=== PATIENT | female | born 1975 | race Caucasian/White ===

== ENCOUNTER 2018-01-17 09:30 | Outpatient (RCR) | payer MEDICAID, SELFPAY ==
--- NOTE | 2017-12-27 12:17 | HP.PTEVAL_ITS ---
Patient's Visit Information SALENA LORD is a 42 year old F referred to Physical Therapy by FELICITAS SAL with a diagnosis of LOW BACK PAIN. Date of Evaluation: 12/27/17 Physical Therapist: Boni Tian PT, - Visit Plan Frequency: 2x /Week Duration: 4 Weeks Plan: graded gradual DLS,kojo ex's ,posture ex' modalities for pain releive - Subjective Subjective: This 42 y/o female presents to physical therapy with low back pain. Patient bent over assisting patient for self hygine caused severe pain 2014 . Pain located on lower right side. Tried chiropractor then recommended PT. Patient symptoms elevations from chair,lifting,bending,standing 10 mins. Symptoms better with sitting,walking. Patient christian to sleep okay. Coughing/ sneezing -. Bowel/bladder-.Patient concern with mobilty issues. Mal parathesai/tingling. VOCATION: unemployed. SOCAIL: - Pain Right Back Pain Intensity (Out of 10): 3 Pain Intensity Range: 10 - Objective POSTURE: mild foward posture. GAIT: ambulates with mild foward posture reciprocal pattern. NEURO: denies parathesia/tingling ,reflexes L3-4,L4-5,L5- S1. PALAPTION: tender R-LS. SYMMTRIES: alighn. MMT: quads/hams/ankle /great toe extensors 4/5,hip flexion 4-/5. FLEXABLITY: hams min tight. LUMBAR ROM: flexion min loss,extension mod loss pain,side glides min/mod loss pain - Special Tests L/S Slump test left side: Negative L/S Slump test right side: Negative L/S Left Straight Leg Raise: Negative L/S Right Straight Leg Raise: Negative Lumbar Standing: Flexion - Mechanical Response: No effect Lumbar Standing: Flexion - Symptoms During Testing: Increases Lumbar Standing: Flexion - Symptoms After Testing: No worse Lumbar Standing: Extension - Mechanical Response: No effect Lumbar Standing: Extension - Symptoms During Testing: Increases Lumbar Standing: Extension - Symptoms After Testing: No worse Lumbar Standing: Right Side Glides - Mechanical Response: No effect Lumbar Standing: Right Side [place] - Symptoms During Testing: Increases Lumbar Standing: Right Side [place] - Symptoms After Testing: No worse Lumbar Standing: Left Side [place] - Mechanical Response: No effect Lumbar Standing: Left Side [place] - Symptoms During Testing: Increases Lumbar Standing: Left Side [place] - Symptoms After Testing: No worse Lumbar Lying: Flexion - Mechanical Response: No effect Lumbar Lying: Flexion - Symptoms During Testing: Increases Lumbar Lying: Flexion - Symptoms After Testing: Worse Lumbar Lying: Extension - Mechanical Response: Increases motion Lumbar Lying: Extension - Symptoms During Testing: Decreases Lumbar Lying: Extension - Symptoms After Testing: Better - Goals Goal 1:: Patient to be Independant with HEP Goal Time Frame: 4-6 Weeks Goal 2:: Patient to be Independant woth posture/body mechanics Goal Time Frame: 4-6 Weeks Goal 3:: Patient to decrease lumbar pain by 40% or greater to improve function with ADL'S and walking and standing. Goal Time Frame: 4-6 Weeks Goal 4:: Patient to improve lumbar ROM for function of recovery Goal Time Frame: 4-6 Weeks Goal 5:: Patient to be d/c to prophalaxis Goal Time Frame: 4-6 Weeks - Rehabilitation Potential Physical Therapy Diagnosis: Patient injuried lumbar pain worse with flexion responds bettwer with posture correction kojo ex's along with decrease core strength of TA thus benifit from skilled PT Rehabilitation Potential: Good - Anticipated Interventions Patient/Client Instruction: Educate patient on: Condition, Plan of Care For the Purpose of:: To decrease pain, To increase ROM, To improve muscle performance and motor function, To increase tolerance to activity/condition/ position, To decrease level of supervision to perform tasks, To improve health of tissue, To decrease soft tissue restriction, To increase flexibility/ROM, To reduce risk of recurrence, To improve ability to perform tasks related to life management Therapeutic Exercise to Include: Strength training, Body mechanics, Postural training, Flexibilty training, Dynamic Lumbar Stabilization, Kojo Exercises For the Purpose of:: To decrease pain, To increase ROM, To improve muscle performance and motor function, To increase tolerance to activity/condition/ position, To improve ability of physical actions for home/community/work/leisure , To improve health of tissue, To decrease soft tissue restriction, To improve ability to perform tasks related to life management TENS: Yes IF ES: Yes Cryotherapy (ice pack, ice massage): Yes Thermo therapy (hot pack): Yes Ultrasound (thermal/non thermal): Yes For the Purpose of:: To decrease pain, To increase ROM, To improve muscle performance and motor function, To increase tolerance to activity/condition/ position, To improve ability of physical actions for home/community/work/leisure , To improve health of tissue, To decrease soft tissue restriction, To reduce risk of recurrence, To improve ability to perform tasks related to life management Thank you for the opportunity to evaluate your patient. For Medicare and Medicare HMO plans, please review the plan of care and approve it. It will need to be FAXED BACK to us at [phone] for Medicare purposes. Please let me know if there are questions or concerns regarding this plan of care. Physician Signature: Date:
--- NOTE | 2018-03-29 15:28 | HP.PTDCNRP_ITS ---
HP - Discharge Summary (1) - Patient Information SALENA LORD was seen in my office for initial evaluation on 12/27/17. The following Plan of Care was established for this patient: Initial Frequency: 2x /Week Initial Duration: 4 Weeks - Anticipated Interventions Patient/Client Instruction: Educate patient on: Condition, Plan of Care For the Purpose of:: To decrease pain, To increase ROM, To improve muscle perf ormance and motor function, To increase tolerance to activity/condition/position, To decrease level of supervision to perform tasks, To improve health of tissue, To decrease soft tissue restriction, To increase flexibility/ROM, To reduce risk of recurrence, To improve ability to perform tasks related to life management Therapeutic Exercise to Include: Strength training, Body mechanics, Postural training, Flexibilty training, Dynamic Lumbar Stabilization, Kojo Exercises For the Purpose of:: To decrease pain, To increase ROM, To improve muscle performance and motor function, To increase tolerance to activity/condition/position, To improve ability of physical actions for home/community/work/leisure, To improve health of tissue, To decrease soft tissue restriction, To improve ability to perform tasks related to life management TENS: Yes IF ES: Yes Cryotherapy (ice pack, ice massage): Yes Thermo therapy (hot pack): Yes Ultrasound (thermal/non thermal): Yes For the Purpose of:: To decrease pain, To increase ROM, To improve muscle performance and motor function, To increase tolerance to activity/condition/position, To improve ability of physical actions for home/community/work/leisure, To improve health of tissue, To decrease soft tissue restriction, To reduce risk of recurrence, To improve ability to perform tasks related to life management This patient was last seen in our office 01/16/18. Pertinent comments regarding their Physical therapy will appear below: This patient seen for PT for back pain . Patient PT consisted of DLS abd/back,postural ex's, modalities ,kojo ex's . Patient Cancelled an NS last visits . Thus needs order to continue. At this point I will be discontinuing this patient from physical therapy. I would be happy to see this patient again in the future if found appropriate by the physician. Thank you! Boni Tian, PT,
== END 2018-01-17 19:00 | disposition home or self-care (01) ==
LOC: PT 09:30
PROVIDERS: Family Provider Internal Medicine; PCP Internal Medicine
DX: M54.5 Low back pain (principal)
CPT/HCPCS: 97014; 97035; 97110; 97162; G0283

== ENCOUNTER 2018-01-22 17:12 | Emergency (ER) | payer MEDICAID, SELFPAY ==
[2018-01-22 17:14] VITALS: BP 133/71; PULSE 92; RESP 14; TEMP 36.9; O2SAT 100; BMI 50.5
--- NOTE | 2018-01-22 17:29 | ED.VISSUMM ---
- ER Visit Summary Date of Service: 01/22/18 Chief Complaint: Left lower paravertebral back pain History of Present Illness: The patient is a 42 F past medical history of a prior back injury. No prior back surgery. Today she was combing her hair she was bent over when she went to stand up she felt pain in her left lower paravertebral back. Denies any bowel or bladder incontinence. No fever. No trauma. No numbness or weakness in her legs. No abdominal pain. She did take 1.5 hydrocodone's at home which did help to relieve the symptoms. Physical Examination: Middle-aged obese female vital signs are all. She does not look septic or toxic. She is in no acute distress. HEENT exam unremarkable neck nontender. Lungs clear to auscultation bilaterally. Heart regular rhythm no murmur. Abdomen soft nondistended normal bowel sounds no peritoneal signs. She is moving all 4 extremities. No neurovascular intact. There is no cauda equina or saddle anesthesia and lower extremities. She has normal medial thigh sensation. Dorsi and plantar flexion is intact. 5 out of 5 motor strength. Negative straight leg raise bilaterally. Back as left lower paralumbar soft tissue tenderness consistent with myofascial strain and spasm. The cervical, thoracic and lumbar spine are all nontender. Neurologic exam normal. No motor or sensory deficits. Normal motor strength and sensation to both upper and lower extremities. Test Results: None Emergency Department Course and Treatment: IM Toradol here. She already took hydrocodone at home. Treatment Plan: Flexeril for muscle relaxant due to her insurance. Naprosyn for pain and inflammation. Hot showers. Warm bath. Massage. Disposition: Discharge Impression: Low back pain secondary to paravertebral muscle strain and spasm This note was generated with [employer] dictation software. It may contain incorrect words, spelling, and punctuation that were not noted in review of the chart prior to signing ED Disposition - Plan for ED Patient: Chief Complaint: Back Referrals: Audrey Lin MD [Primary Care Provider] -
[2018-01-22] MEDS: Ketorolac 60 MG/2 ML Vial IM (17:32)
--- NOTE | 2018-01-22 17:32 | ED.DEP ---
ED Disposition - Plan for ED Patient: Disposition: Home or Assisted Living Chief Complaint: Back Instructions: ED Spasm Back No Trauma Prescriptions: Cyclobenzaprine [Flexeril] 10 mg PO TID #20 tab Referrals: Audrey Lin MD [Primary Care Provider] - 1 Week if not improving Additional Instructions: Hot shower, warm bath and massage. Motrin for pain and inflammation. Flexeril as a muscle relaxant. No lifting more than 10 pounds until pain has been gone for several days.
[2018-01-22 18:03] VITALS: BP 116/59; PULSE 101; RESP 15; O2SAT 98
== END 2018-01-22 18:03 | disposition home or self-care (01) ==
PROVIDERS: Emergency Provider Emergency Medicine; Family Provider Internal Medicine; PCP Internal Medicine
DX: S39.012A Strain of muscle, fascia and tendon of lower back, initial encounter (principal); M54.5 Low back pain; M62.830 Muscle spasm of back; X50.1XXA Overexertion from prolonged static or awkward postures, initial encounter; Y93.9 Activity, unspecified; Y92.9 Unspecified place or not applicable; E66.9 Obesity, unspecified
CPT/HCPCS: 96372; 99283

== ENCOUNTER 2018-01-24 17:53 | Emergency (ER) | payer MEDICAID, SELFPAY ==
[2018-01-24 17:53] VITALS: BP 131/77; PULSE 97; RESP 18; TEMP 37.1; O2SAT 97; BMI 42.7
--- NOTE | 2018-01-24 18:35 | RAD_ITS ---
STUDY: X-RAY - ACUTE ABDOMINAL SERIES REASON FOR EXAM: Female, 42 years old. Colicky supraumbilical pain. TECHNIQUE: Single view of the chest. Supine, erect view(s) of the abdomen were obtained. COMPARISON: None. FINDINGS: CHEST: Heart size is normal. Hilar and mediastinal shadows are unremarkable. There is no pleural effusion or acute pulmonary inflammatory change. Soft tissues and bony structures are unremarkable. There is no free air beneath the diaphragm. ABDOMEN: There is a nonobstructive bowel gas pattern. Moderate stool burden. Calcifications in the lower left pelvis may represent phleboliths or distal ureteral stones. Soft tissues and bony structures are otherwise unremarkable. RAD/Acute Abdomen Inc Chest IMPRESSION: Nonobstructive abdomen. Electronically Signed: Maddi Pino MD at 19:23 EDT Tel , Service support ,
[2018-01-24] MEDS: Dicyclomine 10 MG Capsule 20 MG PO (18:51)
--- NOTE | 2018-01-24 20:27 | ED.DCSUM_ITS ---
- ER Visit Summary Date of Service: 01/24/18 Chief Complaint: Patient states the pain is sharp. History of Present Illness: The patient is a 42 F who presents with midline colicky supraumbilical abdominal pain started yesterday. There is no associated nausea, vomiting diarrhea. There is no associated dysuria, frequency, urgency hematuria. She denies radiation of the pain. She denies food intolerance. She denies history of cholelithiasis, she denies any abdominal surgery. She denies history of renal ureterolithiasis. She denies chest pain, palpitations, dyspnea on exertion, orthopnea or PND. She denies shortness of breath, coughing or pleuritic chest pain. She denies fever, chills or night sweats. She denies weight gain or weight loss. She reports presently having pain. Physical Examination: Vital signs noted and blood pressure slightly about 131/77. HEENT exam is unremarkable. Heart is regular without murmur, gallop or rub. S1 and S2 are normal. Lungs are clear to auscultation with good movement of air bilaterally. Abdomen is soft with tenderness 5 cm above the umbilicus in the midline.. There is no guarding or peritoneal findings. There is no palpable pulsatile mass. There is no abdominal bruit. Rodriguez sign is negative. Negative Rovsing sign. There is no evidence of inguinal or umbilical hernia. There is no CVA tenderness. There is no umbilical hernia. There are no dermatologic lesions noted. The remainder of the exam is unremarkable please read written note for complete detail Test Results: Since there was slight tympany to percussion and pain is colicky and x-ray of the abdomen was obtained which reveals no ossific gas pattern with increased bowel gas and increased fecal stasis ascending colon and part of the transverse colon. Emergency Department Course and Treatment: Abdominal x-ray was obtained to evaluate for ileus versus partial small bowel obstruction etc. Treatment Plan: Patient was treated with Bentyl. She appears in no discomfort. She states the pain has not resolved. Disposition: Discharged to home with appropriate home-going instructions Impression: Colicky midline supraumbilical abdominal pain This note was generated with [employer] dictation software. It may contain incorrect words, spelling, and punctuation that were not noted in review of the chart prior to signing ED Disposition - Plan for ED Patient: Disposition: Home or Assisted Living Chief Complaint: Abd Pain Instructions: ED Abdominal Pain Unkn Cause Prescriptions: Dicyclomine HCl [Bentyl] 20 mg PO ACHS #10 cap Referrals: Audrey Lin MD [Primary Care Provider] - 3-5 Days if not improving Additional Instructions: Take Metamucil 3 times a day for the next 5-7 days.
--- NOTE | 2018-01-24 20:45 | ED.DCSUM_ITS ---
- ER Visit Summary Date of Service: 01/24/18 Chief Complaint: [] History of Present Illness: The patient is a 42 F [] Physical Examination: [] Test Results: [] Emergency Department Course and Treatment: [] Treatment Plan: [] Disposition: [] Impression: [] This note was generated with [employer] dictation software. It may contain incorrect words, spelling, and punctuation that were not noted in review of the chart prior to signing ED Disposition - Plan for ED Patient: Disposition: Home or Assisted Living Chief Complaint: Abd Pain Instructions: ED Abdominal Pain Unkn Cause Prescriptions: Dicyclomine HCl [Bentyl] 20 mg PO ACHS #10 cap Clindamycin HCl [Cleocin] 300 mg PO Q6H #28 cap Referrals: Audrey Lin MD [Primary Care Provider] - 3-5 Days if not improving Additional Instructions: Take Metamucil 3 times a day for the next 5-7 days.
[2018-01-24] MEDS: Clindamycin HCl 150 MG Capsule 300 MG PO (20:50)
[2018-01-24 20:51] VITALS: PULSE 88; RESP 16; O2SAT 97
== END 2018-01-24 20:52 | disposition home or self-care (01) ==
PROVIDERS: Emergency Provider Emergency Medicine; Family Provider Internal Medicine; PCP Internal Medicine
DX: R10.33 Periumbilical pain (principal); S40.862A Insect bite (nonvenomous) of left upper arm, initial encounter; L08.9 Local infection of the skin and subcutaneous tissue, unspecified; W57.XXXA Bitten or stung by nonvenomous insect and other nonvenomous arthropods, initial encounter; Y93.9 Activity, unspecified; Y92.9 Unspecified place or not applicable; E66.9 Obesity, unspecified
CPT/HCPCS: 74022; 99283; A4216

== ENCOUNTER 2018-06-11 18:00 | Emergency (ER) | payer MEDICAID, SELFPAY ==
[2018-06-11 18:01] VITALS: BP 152/92; PULSE 99; RESP 18; TEMP 36.8; O2SAT 95; BMI 49.8
[2018-06-11 18:04] VITALS: BP 152/92; PULSE 99; RESP 18; TEMP 36.8; O2SAT 95
[2018-06-11 18:40] LABS: Mucous, Urine 0 SEEN /hpf (<or=2+)
[2018-06-11 18:46] LABS: Color, Urine Yellow (Yellow); Glucose, Dipstick Normal (Normal); Ketone-Dipstick Negative (Negative); Leukocyte Esterase-Dipstick 500 /ul (Negative); Nitrite-Dipstick Negative (Negative); Occult Blood-Urine 150 /ul (Negative); Protein-Dipstick 30 mg/dl (Negative); Specific Gravity, Urine 1.025 (1.002-1.030); Urine Bilirubin Dipstick Negative (Negative); Urine Clarity Cloudy (Clear); Urine Urobilinogen 1 mg/dl (Normal)
[2018-06-11 19:08] LABS: Bacteria 2+ /hpf (None Seen); Red Blood Cells-Urine 10-25 SEEN /hpf (0-5); White Blood Cells 0-5 SEEN /hpf (0-5)
[2018-06-11 19:09] LABS: Squamous Epithelial Cells - UA > 100 SEEN /hpf (5-10); Yeast-Urine 2+ /hpf (None Seen)
--- NOTE | 2018-06-11 19:18 | ED.DCSUM_ITS ---
- ER Visit Summary Date of Service: 06/11/18 Chief Complaint: Vaginal itching and History of Present Illness: The patient is a 43 F presents to the emergency department vaginal itching and burning. The patient states that about 6 days ago, she had symptoms of urinary tract infection. She states she went to urgent care. She was placed on Keflex. She completed the treatment. Over the past 2 days, she is had increasing vaginal itching and burning. She denies any dysuria. She states that she did try some local hygiene measures but it did not improve. She denies any history of yeast vaginitis. She denies any bleeding. She denies any systemic symptoms. Physical Examination: Vital signs reviewed General: Well-nourished, well-developed Head: Normocephalic, atraumatic Eyes: Pupils equal and reactive, extraocular muscles intact Neck, supple, no lymphadenopathy Heart: Regular rate and rhythm Respiratory: No distress, clear bilaterally Abdomen: Soft, nontender, nondistended, no peritoneal signs Back: Nontender Extremities: Nontender, no edema, no cords Skin: Normal color no rash Neuro: Alert and oriented, no focal or lateralizing deficits Test Results: [] Emergency Department Course and Treatment: Urine was obtained. It does show a lot of squamous cells and positive for yeast. I do feel the patient likely has yeast vaginitis. I am going to treat her with Diflucan. She is given her first dose here. I will write a prescription if her symptoms are not improving over the next 48 hours. She is comfortable with this plan of care. Treatment Plan: [] Disposition: Discharge Impression: Yeast vaginitis This note was generated with [employer] dictation software. It may contain incorrect words, spelling, and punctuation that were not noted in review of the chart prior to signing ED Disposition - Plan for ED Patient: Instructions: Vaginal Infection: Yeast (Candidiasis) Prescriptions: Fluconazole [Diflucan] 150 mg PO X1 #1 tab Referrals: Audrey Lin MD [Primary Care Provider] -
[2018-06-11] MEDS: Fluconazole 100 MG Tablet 150 MG PO (19:28)
[2018-06-11 19:29] VITALS: BP 121/70; PULSE 97; RESP 14; O2SAT 98
== END 2018-06-11 19:29 | disposition home or self-care (01) ==
PROVIDERS: Emergency Provider Emergency Medicine; Family Provider Internal Medicine; PCP Internal Medicine
DX: B37.3 Candidiasis of vulva and vagina (principal)
CPT/HCPCS: 81001; 99283

== ENCOUNTER 2018-09-07 02:37 | Emergency (ER) | payer MEDICAID, SELFPAY ==
[2018-09-07 02:38] VITALS: BP 133/89; PULSE 93; PULSE 94; RESP 17; RESP 19; TEMP 36.9; O2SAT 96; O2SAT 98; BMI 52.2
--- NOTE | 2018-09-07 02:52 | EKG12_ITS ---
Test Reason : CP Blood Pressure : / mmHG Vent. Rate : 095 BPM Atrial Rate : 095 BPM P-R Int : 170 ms QRS Dur : 068 ms QT Int : 354 ms P-R-T Axes : 039 008 019 degrees QTc Int : 444 ms Normal sinus rhythm Normal ECG Confirmed by STEWART FRITZ ([id number]), research editor YARA HU ([id number]) on 09/10/2018 2:03:08 PM Referred By: NIKI Confirmed By:STEWART FRITZ
--- NOTE | 2018-09-07 02:52 | RAD_ITS ---
STUDY: X-RAY CHEST REASON FOR EXAM: Female, 43 years old. Chest pain for one day. TECHNIQUE: PA and lateral views of the chest. COMPARISON: January 24, 2018. FINDINGS: The lungs are clear and hyperexpanded. There is no demonstrated pleural abnormality. Normal size heart. Normal mediastinum and debbie. There is prominence of the pulmonary hilar arteries without peripheral pulmonary vascular congestion. Normal visualized aortic arch and descending thoracic aorta. Normal visualized thoracic spine. Normal visualized ribs, clavicles, and shoulders. The patient has had previous cervical spine surgery. There is no demonstrated abnormality of the visualized soft tissue structures of the upper abdomen. RAD/Chest PA and Lateral IMPRESSION: No radiographic evidence of acute cardiopulmonary disease. Electronically Signed: Aniya Monaco MD at 4:13 EDT , Service support ,
--- NOTE | 2018-09-07 02:52 | ED.VIS.GEN ---
History of Present Illness Chief Complaint: Chest Pain Informant: Patient Narrative: She stated she developed some substernal chest tightness 2 hours ago at rest. It is continuous. Mild in severity. No home treatment. She is never had this evaluated but has had it 5-10 times in the last 8 months. She is never had evaluated. Denies any cardiac PE or dissection risk factors. Denies any medical problems. No recent trips by car. No history of DVT. She is never had a stress test of her heart. No other associated symptoms. It does not radiate. Past Medical History - Allergies and Home Meds Allergies/Adverse Reactions: Allergies aspirin Adverse Reaction (Verified 09/07/18 02:46) Nausea/Vom/Diarrhea Primary Care Physician: Audrey Lin MD [Primary Care Provider] - Prior records reviewed: Yes Past Medical History: None Surgical History: tonsillectomy Lives: With Family Smoking Status: Never smoker Alcohol: None Drugs: None Review of Systems General: Denies: Chills, Fever, Sweats Eyes: Denies: Visual changes - bilaterally, Diplopia ENT: Denies: Rhinorrhea, Sore throat Cardiovascular: Reports: Chest pain. Denies: Palpitations Respiratory: Denies: Dyspnea, Cough, Dyspnea on exertion Gastrointestinal: Denies: Abdominal pain, Nausea, Vomiting, Diarrhea, Melena, Hematochezia Genitourinary: Denies: Dysuria, Hematuria, Frequency Musculoskeletal: Denies: Back pain, Extremity Pain Skin: Denies: Rash, Wounds Neurological: Denies: Headache, Weakness, Numbness Physical Exam Vital Signs/Narrative: Vital Signs Temp Pulse Resp BP Pulse Ox 09/07/18 02:38 98.4 F 94 17 133/89 H 96 Diagnostic/Tx/Re-eval - Medical Decision Making EKG obtained shows sinus rhythm at a rate of 95. No ischemic findings noted. There is isolated T wave inversion in inferior lead III. Lab work chest x-ray obtained. Patient allergic to aspirin. Given 1 dose of morphine. Lab work obtained. No acute abnormality seen. Troponin negative. Delta troponin II hours later shows nothing acute as well. Patient resting comfortably. I have a low suspicion for acute coronary syndrome PE or dissection. I feel the patient can follow-up as an outpatient. Her heart score is low. She will return if she worsens. This is in her current finding for the patient. She may need an outpatient stress test. This could be costochondritis versus stress anxiety. ED Disposition - Plan for ED Patient: Disposition: Home or Assisted Living Diagnosis: Chest pain at rest Instructions: ED Chest Pain Atypical Unkn Cause Referrals: Audrey Lin MD [Primary Care Provider] -
[2018-09-07 03:02] LABS: Absolute Lymphocyte Count 2.38 X10^3/ul (0.83-4.51); Absolute Neutrophil Count 5.2 X10^3/uL (2.0-7.7); Basophil# 0.04 X10^3/uL; Basophil% 0.5 % (0-1); Eosinophil# 0.23 X10^3/uL; Eosinophils% 2.8 % (0-5); Hematocrit 40.5 % (37-47); Hemoglobin 14.1 g/dl (12.0-15.0); Lymphocyte # 2.38 X10^3/ul (4.0); Lymphocyte % 28.7 % (19-41); Mean Corp Hgb Conc 34.8 g/gl (32-36); Mean Corpuscular Hgb 31.1 pg (27.0-32.0); Mean Corpuscular Volume 89.4 fL (81-99); Mean Platelet Vol. 9.7 fl (6.2-12.0); Monocyte# 0.47 X10^3/uL; Monocyte% 5.7 % (0-10); Neutrophil # 5.16 X10^3/uL (2.7-7.7); Neutrophil % 62.2 % (47-70); Platelet Count 224 K/mm3 (150-450); RBC Distribution Width SD 45.7 fl (35.1-43.9); Red Blood Count 4.53 M/mm3 (4.2-5.4); White Blood Count 8.3 K/mm3 (4.4-11.0)
[2018-09-07 03:03] LABS: POSITIVE COUNT NO; POSITIVE DIFFERENTIAL NO; POSITIVE MORPHOLOGY NO
[2018-09-07] MEDS: Morphine 4 MG/ML Syringe 2 MG IV (03:11)
[2018-09-07 03:29] LABS: Anion Gap 7 (5-15); BUN 22 mg/dL (7-18); BUN/Creat Ratio 22.6 RATIO (10-20); Calcium,Total 9.2 mg/dL (8.5-10.1); Chloride 106 mmol/L (98-107); Creatinine, Serum 0.97 mg/dL (0.55-1.02); EST Glomerular Filtration Rate 67 mL/min (>60); Est Glom Filt Rate - Afr Amer 81 mL/min (>60); Estimated Creatinine Clearance 57.59 ml/min; Glucose 94 mg/dL (74-106); Potassium 3.7 mmol/L (3.5-5.1); Sodium Level 142 mmol/L (136-145)
[2018-09-07 04:06] VITALS: O2SAT 95
[2018-09-07 04:57] VITALS: BP 137/83; PULSE 84; RESP 14; O2SAT 95
[2018-09-07 05:33] VITALS: BP 139/91; PULSE 85; RESP 20; O2SAT 98
== END 2018-09-07 05:33 | disposition home or self-care (01) ==
PROVIDERS: Emergency Provider Emergency Medicine; Family Provider Internal Medicine; PCP Internal Medicine
DX: R07.89 Other chest pain (principal)
CPT/HCPCS: 71046; 80048; 84484; 85025; 93005; 96374; 99284; J7030; A4216

== ENCOUNTER 2018-10-12 02:45 | Emergency (ER) | payer MEDICAID, SELFPAY ==
[2018-10-12 02:46] VITALS: BP 119/73; PULSE 94; RESP 18; TEMP 37.3; O2SAT 97; BMI 52.7
--- NOTE | 2018-10-12 02:58 | RAD_ITS ---
HISTORY: PT WITH LEFT SIDED CHEST PAIN AND PAIN INTO HER NECK EXAMINATION/TECHNIQUE: XR Chest 2 Views: COMPARISON: 04/07/2014 FINDINGS: EKG leads in place. Normal heart size. Normal lung volumes. An azygous lobe is present. No vascular congestion, pleural effusion, or acute pulmonary infiltration. No pneumothorax. Surgical fusion of the lower cervical spine. RAD/Chest PA and Lateral IMPRESSION: Normal chest. at 0326 Reported and signed by: Maximo Acosta MD Electronically Signed: Maximo Acosta, at 3:25 EDT Tel , Service support ,
--- NOTE | 2018-10-12 02:58 | EKG12_ITS ---
Test Reason : CP Blood Pressure : / mmHG Vent. Rate : 092 BPM Atrial Rate : 092 BPM P-R Int : 158 ms QRS Dur : 070 ms QT Int : 364 ms P-R-T Axes : 049 024 038 degrees QTc Int : 450 ms Normal sinus rhythm Normal ECG Confirmed by LEONIDAS CARBALLO ([id number]), market editor KATINA NGUYEN ([id number]) on 10/15/2018 1:30:53 PM Referred By: ROGELIO Confirmed By:PRADIP CARBALLO
[2018-10-12] MEDS: Mag Hydrox/Al Hydrox/Simeth 30 ML UDC PO (03:02)
[2018-10-12 03:04] LABS: Absolute Lymphocyte Count 2.06 X10^3/ul (0.83-4.51); Absolute Neutrophil Count 4.2 X10^3/uL (2.0-7.7); Basophil# 0.05 X10^3/uL; Basophil% 0.7 % (0-1); Eosinophils% 2.8 % (0-5); Hematocrit 38.3 % (37-47); Hemoglobin 13.2 g/dl (12.0-15.0); Lymphocyte # 2.06 X10^3/ul (4.0); Lymphocyte % 29.2 % (19-41); Mean Corp Hgb Conc 34.5 g/gl (32-36); Mean Corpuscular Hgb 30.6 pg (27.0-32.0); Mean Corpuscular Volume 88.9 fL (81-99); Mean Platelet Vol. 9.4 fl (6.2-12.0); Monocyte# 0.52 X10^3/uL; Monocyte% 7.4 % (0-10); Neutrophil # 4.22 X10^3/uL (2.7-7.7); Neutrophil % 59.8 % (47-70); POSITIVE COUNT NO; POSITIVE DIFFERENTIAL NO; POSITIVE MORPHOLOGY NO; Platelet Count 217 K/mm3 (150-450); RBC Distribution Width CV 13.8 % (11.6-14.6); Red Blood Count 4.31 M/mm3 (4.2-5.4); White Blood Count 7.1 K/mm3 (4.4-11.0)
[2018-10-12 03:18] LABS: Anion Gap 6 (5-15); BUN 13 mg/dL (7-18); BUN/Creat Ratio 13.8 RATIO (10-20); Calcium,Total 8.9 mg/dL (8.5-10.1); Chloride 108 mmol/L (98-107); Creatinine, Serum 0.94 mg/dL (0.55-1.02); EST Glomerular Filtration Rate 69 mL/min (>60); Est Glom Filt Rate - Afr Amer 84 mL/min (>60); Estimated Creatinine Clearance 59.43 ml/min; Glucose 105 mg/dL (74-106); Potassium 3.8 mmol/L (3.5-5.1); Sodium Level 143 mmol/L (136-145)
--- NOTE | 2018-10-12 03:39 | ED.DCSUM_ITS ---
- ER Visit Summary Date of Service: 10/12/18 Chief Complaint: Chest pain History of Present Illness: The patient is a 43 F who presents with chest pain. This began less than an hour ago. It began at rest while laying in bed. She describes it as a tightness in the center of her chest and radiating into her throat. She has had similar prior episodes. She was recently seen in the emergency department had a negative work-up and was advised to follow-up with her primary care physician. She has an appointment on Monday. She denies any associated nausea vomiting diaphoresis or shortness of breath. She does not have exertional symptoms. She has no risk factors except obesity. She denies diabetes, hypertension, hyperlipidemia, family history, smoking. Physical Examination: Afebrile vitals are unremarkable Moist mucous membranes Heart regular rate and rhythm Lungs clear Abdomen soft Alert Symmetric palpable radial pulses Test Results: EKG shows normal sinus rhythm at a rate of 92. Chest x-ray normal. CBC BMP troponin normal, troponin negative. Emergency Department Course and Treatment: Patient was given a GI cocktail with improvement of symptoms. I suspect this is more likely due to gastrointestinal pathology and doubt acute cardiac pathology/ischemia. Her PHIL risk score is 0. Her heart score is 1. She was advised to keep her scheduled appointment. She was also counseled on a bland diet for now and we will start her on a proton pump inhibitor. Patient discharged. Treatment Plan: [] Disposition: Discharge Impression: Chest pain This note was generated with [employer] dictation software. It may contain incorrect words, spelling, and punctuation that were not noted in review of the chart prior to signing ED Disposition - Plan for ED Patient: Referrals: Audrey Lin MD [Primary Care Provider] -
--- NOTE | 2018-10-12 03:39 | ED.DEP ---
ED Disposition - Plan for ED Patient: Instructions: ED Chest Pain NonCardiac Prescriptions: Omeprazole [Prilosec] 20 mg PO DAILY #30 cap Referrals: Audrey Lin MD [Primary Care Provider] -
[2018-10-12 03:46] VITALS: BP 115/60; PULSE 96; RESP 18; O2SAT 98
== END 2018-10-12 03:47 | disposition home or self-care (01) ==
PROVIDERS: Emergency Provider Emergency Medicine; Family Provider Internal Medicine; PCP Internal Medicine
DX: R07.89 Other chest pain (principal); E66.9 Obesity, unspecified
CPT/HCPCS: 71046; 80048; 84484; 85025; 93005; 99285; A4216

== ENCOUNTER 2018-12-18 03:04 | Emergency (ER) | payer MEDICAID, SELFPAY ==
[2018-12-18 03:05] VITALS: BP 125/71; PULSE 102; RESP 18; TEMP 37.1; O2SAT 96; BMI 52.4
--- NOTE | 2018-12-18 03:16 | ED.VIS.GEN ---
History of Present Illness Chief Complaint: Rash Informant: Patient Narrative: She stated once a month for the last 10 months she gets an itchy rash that lasts for a few days. She is been using calamine lotion. She saw her family doctor twice. She tried to referred her to dermatology but she was unable to get in. No recent exposures. She does not know what is causing it. She stated she gets hives frequently. No home treatment today other than calamine. Current severity is mild to moderate. She is never been on steroids. Past Medical History - Allergies and Home Meds Allergies/Adverse Reactions: Allergies aspirin Adverse Reaction (Verified 12/18/18 03:08) Nausea/Vom/Diarrhea Primary Care Physician: Audrey Lin MD [Primary Care Provider] - Prior records reviewed: Yes Past Medical History: - - Reviewed Surgical History: tonsillectomy Lives: Spouse/ Significant Other Smoking Status: Never smoker Alcohol: None Drugs: None Review of Systems General: Denies: Chills, Fever, Sweats Eyes: Denies: Visual changes - bilaterally, Diplopia ENT: Denies: Rhinorrhea, Sore throat Cardiovascular: Denies: Chest pain, Palpitations Respiratory: Denies: Dyspnea, Cough, Dyspnea on exertion Gastrointestinal: Denies: Abdominal pain, Nausea, Vomiting, Diarrhea, Melena, Hematochezia Genitourinary: Denies: Dysuria, Hematuria, Frequency Musculoskeletal: Denies: Back pain, Extremity Pain Skin: Reports: Rash. Denies: Wounds Neurological: Denies: Headache, Weakness, Numbness Physical Exam Vital Signs/Narrative: Vital Signs Temp Pulse Resp BP Pulse Ox 12/18/18 03:05 98.8 F 102 H 18 125/71 H 96 General: Well nourished, Well developed, No Acute Distress Head: Normocephalic, Atraumatic Eyes: Perrl, EOMI ENT: Moist mucous membranes, No rhinorrhea Neck: Supple, Nontender Cardiovascular: Regular rate, Regular rhythm, No murmurs Respiratory: No distress, CTA bilaterally, Chest nontender Abdomen: Soft, Nontender, Nondistended, Normal bowel sounds Back: Nontender, Normal Inspection Extremities: Nontender, No edema Skin: No rash, Rash - Have a hive-like rash on her back and chin. She has excoriations and maculopapular rash on her bilateral forearms.. Negative for: Normal color Neurological: Alert, Oriented x3, Cranial nerves II-XII grossly intact, Normal Strength, Normal Sensation Psychological: Normal affect, Normal Mood Diagnostic/Tx/Re-eval - Medical Decision Making Patient has nonspecific hives as well as a maculopapular rash. She has been itching quite severely. Given prednisone and Benadryl. Will be given prednisone for the next 2 weeks. We will follow-up as an outpatient with her family doctor ED Disposition - Plan for ED Patient: Disposition: Psychiatric Hospital or Unit Diagnosis: Dermatitis Instructions: Self-Care for Skin Rashes Prescriptions: Prednisone 10 mg PO DAILY #63 tab Prescription Printed Referrals: Audrey Lin MD [Primary Care Provider] -
[2018-12-18] MEDS: predniSONE 20 MG Tablet 60 MG PO (03:20)
[2018-12-18] MEDS: DiphenhydrAMINE 25 MG Capsule 50 MG PO (03:21)
[2018-12-18 03:25] VITALS: BP 125/71; PULSE 102; RESP 18; O2SAT 96
== END 2018-12-18 03:30 | disposition home or self-care (01) ==
PROVIDERS: Emergency Provider Emergency Medicine; Family Provider Internal Medicine; PCP Internal Medicine
DX: L30.9 Dermatitis, unspecified (principal)
CPT/HCPCS: 99283

== ENCOUNTER 2019-03-21 16:47 | Emergency (ER) | payer MEDICAID, SELFPAY ==
[2019-03-21 16:48] VITALS: BP 130/72; PULSE 88; RESP 16; TEMP 36.4; O2SAT 97; BMI 52.0
--- NOTE | 2019-03-21 17:13 | CT_ITS ---
STUDY: CT ABDOMEN AND PELVIS WITH CONTRAST REASON FOR EXAM: Female, 44 years old. Left-sided abdominal pain RADIATION DOSAGE (If Supplied By Facility): CTDIvol = ( 20.40 ) mGy, DLP = ( 1346.34 ) mGycm TECHNIQUE: Transaxial images were obtained from the dome of the diaphragm to the symphysis pubis without oral contrast. Oral and amp; IV Gastrografin and amp; 100mL Isovue-370 100ML was administered. Sagittal and coronal images were reconstructed. Individualized dose optimization techniques were used for this CT. COMPARISON: None. FINDINGS: Small round glass opacity lateral left lung base series 2 image 13. The visualized portions of the heart are within normal limits. Normal liver. Normal gallbladder and extrahepatic biliary system. Normal spleen. Normal pancreas. Normal bilateral adrenal glands. Normal right kidney. Normal left kidney. Normal visualized stomach. Prominent length of small bowel demonstrates significant wall thickening and mild associated inflammatory stranding. Normal colon. The appendix is visualized and appears normal. Normal abdominal aorta. Normal inferior vena cava. Normal retroperitoneum. Normal urinary bladder. Normal visualized uterus. Prominent cystic right adnexa. Normal abdominal wall. Normal osseous structures. CT/Abdomen/Pelvis WITH Contrast IMPRESSION: Prominent segment of wall thickening at the distal small bowel is nonspecific but may indicate an infectious or inflammatory etiology as clinically indicated. Cystic right adnexa may be physiologic correlate with pelvic sonogram as clinically indicated. Electronically Signed: Asher Aguilar, at 19:13 EST Tel , Service support ,
--- NOTE | 2019-03-21 17:16 | ED.VISSUMM ---
- ER Visit Summary Date of Service: 03/21/19 Chief Complaint: Abdominal pain History of Present Illness: The patient is a 44 F who presents with epigastric abdominal pain that began approximately 4 to 5 hours prior to arrival. Patient states the pain began rather suddenly. Patient states the pain is over the epigastric and left upper quadrant. Patient describes the pain as constant cramping but sharp at times. Patient states nothing makes it better or worse. Patient denies any nausea or vomiting. Patient denies any diarrhea melena or hematochezia. Patient denies any dysuria but admits to some hematuria. Patient denies any abnormal vaginal bleeding or discharge. Physical Examination: Vital signs are stable. Patient is afebrile. Patient is in no acute distress. Oral mucosa is pink and moist. Neck is supple. Trachea is midline. There is no JVD. Heart was regular rate and rhythm. Lungs are clear and equal bilaterally. Abdomen is soft. Bowel sounds are normal. There is tenderness over the epigastric and left upper quadrant. There is no rebound or guarding noted. Cranial nerves II through XII are intact. There are no focal motor or sensory deficits noted. Test Results: CBC and comprehensive metabolic profile were within normal limits. Lipase was normal. hCG was negative. Urinalysis does not show any evidence of urinary tract infection. CT scan of the abdomen and pelvis was obtained. There is wall thickening of the distal small bowel which may indicate infectious or inflammatory etiology. Emergency Department Course and Treatment: Patient is feeling better on reevaluation. Patient was given prescriptions for Cipro and Flagyl. Patient was also given a prescription for a short course of [place]. Patient was instructed to avoid alcohol. Patient was instructed to follow-up with her primary care physician in 5 to 7 days. Patient understood and was agreeable with the plan. All questions were answered. Disposition: Discharge home Impression: Abdominal pain This note was generated with [employer] dictation software. It may contain incorrect words, spelling, and punctuation that were not noted in review of the chart prior to signing ED Disposition - Plan for ED Patient: Disposition: Home or Assisted Living Diagnosis: Abdominal pain Instructions: ABDOMINAL PAIN, Unknown Cause, (Female) Prescriptions: Ciprofloxacin [Cipro] 500 mg PO BID #20 tab Prescription Printed metroNIDAZOLE [Flagyl] 500 mg PO Q6H #40 tab Prescription Printed Hydrocodone Bitart/Apap 5-325 [[place] 5MG-325MG] 1 tab PO Q6H PRN PRN 3 Days #10 tab PRN Reason: Pain Prescription Printed Referrals: Audrey Lin MD [Primary Care Provider] - 3-5 Days
[2019-03-21 17:29] LABS: Red Blood Cells-Urine 0 SEEN /hpf (0-5); White Blood Cells 0 SEEN /hpf (0-5)
[2019-03-21] MEDS: 0.9% Normal Saline 1,000 ML 1000 ML IV (17:30)
[2019-03-21] MEDS: Morphine 4 MG/ML Syringe IV (17:30)
[2019-03-21 17:31] LABS: Absolute Lymphocyte Count 1.56 X10^3/uL (0.83-4.51); Basophil# 0.07 X10^3/uL; Eosinophil# 0.21 X10^3/uL; Eosinophils% 2.9 % (0-5); Hematocrit 39.6 % (37-47); Hemoglobin 13.5 g/dL (12.0-15.0); Lymphocyte # 1.56 X10^3/ul (4.0); Lymphocyte % 21.4 % (19-41); Mean Corp Hgb Conc 34.1 g/dL (32-36); Mean Corpuscular Hgb 30.9 pg (27.0-32.0); Mean Corpuscular Volume 90.6 fL (81-99); Mean Platelet Vol. 9.6 fl (6.2-12.0); Monocyte# 0.44 X10^3/uL; NRBC Flagged by Analyzer 0 % (0-5); Neutrophil # 5.01 X10^3/uL (2.7-7.7); Neutrophil % 68.6 % (47-70); Platelet Count 227 K/mm3 (150-450); RBC Distribution Width CV 13.7 % (11.6-14.6); Red Blood Count 4.37 M/mm3 (4.2-5.4); White Blood Count 7.3 K/mm3 (4.4-11.0)
[2019-03-21] MEDS: Ondansetron 4 MG/2 ML Vial IV (17:31)
[2019-03-21 17:46] LABS: Color, Urine Yellow (Yellow); Glucose, Dipstick Normal (Normal); Ketone-Dipstick 50 mg/dl (Negative); Leukocyte Esterase-Dipstick Negative /ul (Negative); Nitrite-Dipstick Negative (Negative); Occult Blood-Urine 25 /ul (Negative); Protein-Dipstick 15 mg/dl (Negative); Urine Bilirubin Dipstick Negative (Negative); Urine Clarity Cloudy (Clear); Urine Urobilinogen Normal (Normal)
[2019-03-21 17:50] VITALS: BP 126/76; PULSE 79; RESP 18; TEMP 36.4; O2SAT 99
[2019-03-21 17:52] LABS: ALB/GLOB Ratio 1.1 RATIO (0.9-2.4); AST(SGOT) 21 U/L (15-37); Alanine Aminotransfer ALT/SGPT 29 U/L (13-56); Albumin, Serum 3.9 g/dL (3.2-5.0); Alkaline Phosphatase 67 U/L (45-117); Anion Gap 8 (5-15); BUN 17 mg/dL (7-18); BUN/Creat Ratio 16.8 RATIO (10-20); Calcium,Total 9.1 mg/dL (8.5-10.1); Chloride 107 mmol/L (98-107); Creatinine, Serum 1.01 mg/dL (0.55-1.02); EST Glomerular Filtration Rate 64 mL/min (>60); Est Glom Filt Rate - Afr Amer 77 mL/min (>60); Estimated Creatinine Clearance 54.75 ml/min; Globulin 3.4 g/dL (2.2-4.2); Glucose 91 mg/dL (74-106); Lipase 115 U/L (73-393); Potassium 3.8 mmol/L (3.5-5.1); Protein, Total 7.3 g/dL (6.4-8.2); Sodium Level 141 mmol/L (136-145)
[2019-03-21 17:56] LABS: Bacteria 1+ /hpf (None Seen); Mucous, Urine RARE /hpf (<or=2+); Squamous Epithelial Cells - UA 5-10 SEEN /hpf (5-10)
[2019-03-21 18:01] LABS: Internal QC Validated? YES +Cl - CLEAR BKGD; Pregnancy, Serum, hCG Quali. NEGATIVE Negative
[2019-03-21 20:34] VITALS: BP 99/56; PULSE 81; RESP 16; O2SAT 100
== END 2019-03-21 20:41 | disposition home or self-care (01) ==
PROVIDERS: Emergency Provider Emergency Medicine; Family Provider Internal Medicine; PCP Internal Medicine
DX: R10.13 Epigastric pain (principal); R10.12 Left upper quadrant pain; R68.83 Chills (without fever); R06.00 Dyspnea, unspecified; M54.9 Dorsalgia, unspecified; R31.9 Hematuria, unspecified; R20.2 Paresthesia of skin; E66.9 Obesity, unspecified; E28.2 Polycystic ovarian syndrome
CPT/HCPCS: 74177; 80053; 81001; 83690; 84703; 85025; 96361; 96374; 96375; 99283; J7030; A4216; J2405

== ENCOUNTER 2019-06-17 20:37 | Emergency (ER) | payer MEDICAID, SELFPAY ==
[2019-06-17 20:39] VITALS: BP 131/79; PULSE 115; RESP 16; TEMP 35.9; O2SAT 96; BMI 52.3
--- NOTE | 2019-06-17 20:59 | CT_ITS ---
HISTORY: PELVIC/BACK PAIN THAT STARTED AROUND 19:00,NEGATIVE ADDITIONAL HISTORY: None provided. TECHNIQUE: CT images were obtained of the abdomen and pelvis without IV contrast. Enteric contrast was not given. Number of images including paperwork: 508. A radiation dose optimization technique was used for this scan. COMPARISON: 03/21/2019 FINDINGS: Evaluation of the abdominopelvic organs is limited in the absence of contrast. LOWER THORAX: No consolidation or pleural effusion. LIVER: No concerning focal lesion. GALLBLADDER: No radiopaque calculi. BILE DUCTS: No significant biliary dilatation. SPLEEN: Prominent in size measuring approximately 15 x 4.8 x 11.5 cm in AP by transverse by craniocaudal dimensions. PANCREAS: Unremarkable. ADRENAL GLANDS: Unremarkable. KIDNEYS/URETERS: Unremarkable. BOWEL: No bowel obstruction. No significant bowel wall thickening. No localized inflammation. APPENDIX: Normal. FREE FLUID: Trace free fluid. FREE AIR: None. LYMPH NODES: No pathologic appearing adenopathy. PERITONEUM, RETROPERITONEUM AND MESENTERY: Otherwise unremarkable. VASCULATURE: Unremarkable as imaged. ABDOMINAL WALL: Unremarkable. PELVIS: Unremarkable bladder. Uterus appears prominent in size without distinct mass, measuring 12.4 x 7.1 x 8.5 cm. OSSEOUS AND SOFT TISSUE STRUCTURES: No acute skeletal findings. Degenerative changes. CT/Abdomen/Pelvis without Cont IMPRESSION: No acute abdominopelvic abnormality. Incidental findings above. Individualized dose optimization techniques were used for this CT. at 2235 Reported and signed by: Leonela Almendarez MD Electronically Signed: Leonela Almendarez MD at 22:35 EST Tel , Service support ,
[2019-06-17] MEDS: 0.9% Normal Saline 1,000 ML 125 ML IV (21:14)
[2019-06-17] MEDS: Ketorolac 30 MG/ML Syringe 15 MG IV (21:15)
[2019-06-17] MEDS: Morphine 4 MG/ML Syringe IV (21:15)
[2019-06-17] MEDS: Ondansetron 4 MG/2 ML Vial IV (21:15)
[2019-06-17 21:37] LABS: Absolute Lymphocyte Count 1.43 X10^3/uL (0.83-4.51); Absolute Neutrophil Count 5.4 X10^3/uL (2.0-7.7); Basophil# 0.06 X10^3/uL; Basophil% 0.8 % (0-1); Eosinophil# 0.19 X10^3/uL; Eosinophils% 2.5 % (0-5); Hemoglobin 14.5 g/dL (12.0-15.0); Lymphocyte # 1.43 X10^3/ul (4.0); Lymphocyte % 18.6 % (19-41); Mean Corp Hgb Conc 35.4 g/dL (32-36); Mean Corpuscular Hgb 31.9 pg (27.0-32.0); Mean Corpuscular Volume 90.3 fL (81-99); Mean Platelet Vol. 9.5 fl (6.2-12.0); Monocyte# 0.54 X10^3/uL; NRBC Flagged by Analyzer 0 % (0-5); Neutrophil # 5.43 X10^3/uL (2.7-7.7); Neutrophil % 70.8 % (47-70); Platelet Count 252 K/mm3 (150-450); RBC Distribution Width CV 13.7 % (11.6-14.6); RBC Distribution Width SD 44.8 fl (35.1-43.9); Red Blood Count 4.54 M/mm3 (4.2-5.4); White Blood Count 7.7 K/mm3 (4.4-11.0)
[2019-06-17 21:49] LABS: Internal QC Validated? YES +Cl - CLEAR BKGD; Pregnancy, Serum, hCG Quali. NEGATIVE Negative
[2019-06-17 21:56] LABS: Anion Gap 3 (5-15); BUN 14 mg/dL (7-18); BUN/Creat Ratio 13.7 RATIO (10-20); Chloride 107 mmol/L (98-107); Creatinine, Serum 1.02 mg/dL (0.55-1.02); EST Glomerular Filtration Rate 63 mL/min (>60); Est Glom Filt Rate - Afr Amer 76 mL/min (>60); Estimated Creatinine Clearance 54.22 ml/min; Glucose 93 mg/dL (74-106); Potassium 3.7 mmol/L (3.5-5.1); Sodium Level 140 mmol/L (136-145)
[2019-06-17 22:10] LABS: Mucous, Urine 0 SEEN /hpf (<or=2+); Red Blood Cells-Urine 0 SEEN /hpf (0-5); White Blood Cells 0 SEEN /hpf (0-5)
[2019-06-17 22:17] LABS: Color, Urine Yellow (Yellow); Glucose, Dipstick Normal (Normal); Ketone-Dipstick 5 mg/dl (Negative); Leukocyte Esterase-Dipstick Negative /ul (Negative); Nitrite-Dipstick Negative (Negative); Occult Blood-Urine Negative /ul (Negative); Protein-Dipstick 15 mg/dl (Negative); Specific Gravity, Urine 1.025 (1.002-1.030); Urine Bilirubin Dipstick Negative (Negative); Urine Clarity Sl. Cloudy (Clear); Urine Urobilinogen Normal (Normal)
--- NOTE | 2019-06-17 22:40 | ED.DCSUM_ITS ---
- ER Visit Summary Date of Service: 06/17/19 Chief Complaint: [Abdominal pain] History of Present Illness: The patient is a 44 F presents to the emergency department with complaint of abdominal pain that started around 7 PM tonight. Patient states that he clinically not gradually and initially was in her right pelvic region. Patient states that she has had similar pain in the past related to ovarian cyst and normally when she takes Advil the pain resolves. Patient states that she took some Advil however the pain and started to migrate go into her back and became more severe. She has no history of kidney stones. She denies urinary symptoms. She had a mild nausea but no vomiting. Patient's last menstrual period was on the fifth of this month. Currently she rates her pain an 8 out of 10. He denies any blood in her stool or black tarry stool. He denies any back injury. He denies any pain rating down her legs. [] Physical Examination: [HEENT-PERRLA, EOMI. Cranial nerves II through XII grossly intact. TMs clear. Mucous membranes moist. No adenopathy. Cardiovascular-regular rate and rhythm without murmur or ectopy Lungs-clear to auscultation, chest wall stable without crepitus or subcu emphysema Abdomen-normoactive bowel sounds, soft. Patient has mild tenderness palpation over right lower quadrant without guarding. There is no rebound, guarding, finger signs. Patient does have some mild CVA tenderness on the right. Extremities-intact ?4, normal range of motion, normal pulses, atraumatic] Test Results: [CBC with differential obtained for the lichen of 7.7, hemoglobin 14.5, hematocrit 41, platelet 253. Chemistries unremarkable. Urinalysis normal. hCG was negative. CT flank showed nothing acute.] Emergency Department Course and Treatment: [Patient was medicated morphine 4 mg of and Zofran 4 mg IV.] Treatment Plan: [Patient will be given a prescription for [place] for few days. Patient advised push fluids patient to return if conditions worsen anyway.] Disposition: [Discharged home in stable condition] Impression: [Abdominal pain-etiology uncertain] This note was generated with [employer] software. It may contain incorrect words, spelling, and punctuation that were not noted in review of the chart prior to signing ED Disposition - Plan for ED Patient: Referrals: Audrey Lin MD [Primary Care Provider] -
--- NOTE | 2019-06-17 22:44 | ED.DEP ---
ED Disposition - Plan for ED Patient: Instructions: ABDOMINAL PAIN, Unknown Cause, (Female) Prescriptions: Hydrocodone Bitart/Apap 5-325 [[place] 5MG-325MG] 1 tab PO Q4H PRN PRN 2 Days #10 tab PRN Reason: Pain Prescription Printed Referrals: Audrey Lin MD [Primary Care Provider] - 3-5 Days
[2019-06-17 22:45] LABS: Bacteria 1+ /hpf (None Seen); Squamous Epithelial Cells - UA 25-50 SEEN /hpf (5-10)
[2019-06-17 23:00] VITALS: RESP 18; O2SAT 98
== END 2019-06-17 23:02 | disposition home or self-care (01) ==
LOC: ED 21:06
PROVIDERS: Emergency Provider Emergency Medicine; PCP Internal Medicine
DX: R10.31 Right lower quadrant pain (principal); R11.0 Nausea
CPT/HCPCS: 74176; 80048; 81001; 84703; 85025; 96361; 96374; 96375; 99283; J7030; A4216; J2405

== ENCOUNTER 2020-07-01 16:04 | Emergency (ER) | payer MEDICAID, SELFPAY ==
[2020-07-01] VITALS (7 sets, daily range): BP systolic 114–146; BP diastolic 61–78; PULSE 84–103; RESP 11–20; TEMP 36.2; O2SAT 97–100; BMI 52.7
--- NOTE | 2020-07-01 16:41 | EKG12_ITS ---
Test Reason : Blood Pressure : / mmHG Vent. Rate : 096 BPM Atrial Rate : 096 BPM P-R Int : 144 ms QRS Dur : 074 ms QT Int : 384 ms P-R-T Axes : 028 004 022 degrees QTc Int : 485 ms Normal sinus rhythm Prolonged QT Abnormal ECG Confirmed by ERIC CORREIA, JEFFERY ([id number]), marketing editor YARA HU ([id number]) on 07/06/2020 2:34:00 PM Referred By: ELVA Confirmed By:JEFFERY REYES MD
--- NOTE | 2020-07-01 16:42 | CT_ITS ---
STUDY: CTA HEAD AND NECK WITH CONTRAST REASON FOR EXAM: Female, 45 years old. Vision loss, headache RADIATION DOSAGE (If Supplied By Facility): CTDIvol = ( 12.39 ) mGy, DLP = ( 802.94 ) mGycm TECHNIQUE: CT angiography was performed with a multi-detector CT scanner. Data acquisition was obtained from the skull base through the vertex following intravenous administration of IV 100mL Isovue-370. MIP images were reconstructed from the axial data set. Post-processing of the angiographic images was performed, with multiplanar reformation and 3D reconstruction. Individualized dose optimization techniques were used for this CT. COMPARISON: No relevant priors. FINDINGS: Normal bilateral petrous carotid arteries. Normal right cavernous carotid artery with a normal supraclinoid bifurcation. Normal left cavernous carotid artery with a normal supraclinoid bifurcation. Normal right A1 segments of the anterior cerebral artery. Normal left A1 segments of the anterior cerebral artery. Normal intact anterior communicating artery (ACOM). Normal bilateral A2 segments of the anterior cerebral arteries. Normal right M1 and M2 segments of the middle cerebral arteries, with a normal M1 bifurcation. Normal left M1 and M2 segments of the middle cerebral arteries, with a normal M1 bifurcation. Normal right posterior communicating artery (PCOM). Normal left posterior communicating artery (PCOM). Normal bilateral vertebral arteries. Normal basilar artery with a normal basilar bifurcation. The visualized bilateral superior cerebellar (SCA) arteries are normal. Normal bilateral P1, P2 and visualized P3 segments of the posterior cerebral arteries. There is no demonstrated aneurysm of the [place]. There is no demonstrated abnormality of the visualized brain. AORTIC ARCH: Normal visualized aortic arch. Normal origins of the brachiocephalic, left common carotid, and left subclavian arteries. RIGHT CAROTID ARTERIES: Normal right common carotid artery (CCA). Normal right common carotid bulb. Normal origin of the right internal carotid (ICA) artery without a hemodynamically significant stenosis. Normal visualized cervical portion of the right internal carotid artery. Normal origin of the right external carotid artery (ECA). LEFT CAROTID ARTERIES: Normal left common carotid artery (CCA). Normal left common carotid bulb. Normal origin of the left internal carotid (ICA) artery without a hemodynamically significant stenosis. Normal visualized cervical portion of the left internal carotid artery. Normal origin of the left external carotid artery (ECA). VERTEBRAL ARTERIES: Normal bilateral vertebral arteries. There is evidence of prior anterior fusion of C5/C6. There is partial opacification of the left mastoid air cells consistent with a history of mastoiditis. There is mild opacification of the paranasal sinuses. CT/CTA Head AND Neck W/ Contrast IMPRESSION: Within normal limits CTA Head and neck with contrast. Mild pansinusitis. Electronically Signed: Robyn Champion MD at 17:54 EST Tel , Service support ,
[2020-07-01 16:55] LABS: Absolute Lymphocyte Count 1.55 X10^3/uL (0.83-4.51); Absolute Neutrophil Count 4.3 X10^3/uL (2.0-7.7); Basophil# 0.06 X10^3/uL; Basophil% 0.9 % (0-1); Eosinophil# 0.13 X10^3/uL; Hematocrit 39.3 % (37-47); Hemoglobin 13.3 g/dL (12.0-15.0); Lymphocyte # 1.55 X10^3/ul (4.0); Mean Corp Hgb Conc 33.8 g/dL (32-36); Mean Corpuscular Hgb 30.4 pg (27.0-32.0); Mean Corpuscular Volume 89.9 fL (81-99); Mean Platelet Vol. 9.4 fl (6.2-12.0); Monocyte# 0.44 X10^3/uL; Monocyte% 6.8 % (0-10); NRBC Flagged by Analyzer 0 % (0-5); Neutrophil # 4.25 X10^3/uL (2.7-7.7); Platelet Count 306 K/mm3 (150-450); RBC Distribution Width CV 13.7 % (11.6-14.6); RBC Distribution Width SD 44.5 fl (35.1-43.9); Red Blood Count 4.37 M/mm3 (4.2-5.4); White Blood Count 6.5 K/mm3 (4.4-11.0)
--- NOTE | 2020-07-01 16:55 | TELEMED_ITS ---
[facility] has confirmed receipt of a request for visit. This document confirms receipt of the order initiating the consult. To find the results of the consultation, please view the patient's reports for the scanned Telemed Consult.
[2020-07-01 17:09] LABS: Prothrombin Time (Protime)PT. 12.9 SECONDS (11.7-14.9)
[2020-07-01 17:10] LABS: Partial Thromboplast Time 26.6 Seconds (24.1-36.2)
[2020-07-01 17:22] LABS: Anion Gap 7 (5-15); BUN 15 mg/dL (7-18); Calcium,Total 9.4 mg/dL (8.5-10.1); Chloride 107 mmol/L (98-107); Creatinine, Serum 1.07 mg/dL (0.55-1.02); EST Glomerular Filtration Rate 59 mL/min (>60); Est Glom Filt Rate - Afr Amer 72 mL/min (>60); Estimated Creatinine Clearance 51.16 ml/min; Glucose 85 mg/dL (74-106); Potassium 3.9 mmol/L (3.5-5.1); Sodium Level 141 mmol/L (136-145)
--- NOTE | 2020-07-01 17:32 | RAD_ITS ---
STUDY: X-RAY CHEST REASON FOR EXAM: Female, 45 years old. Neuro deficit, acute, stroke suspected TECHNIQUE: 2 frontal images of the chest were obtained. COMPARISON: 10/12/2018. FINDINGS: There is no new focal consolidation. Normal size heart. Normal mediastinum and debbie. Normal visualized pulmonary arteries. Normal visualized aortic arch and descending thoracic aorta. Normal visualized thoracic spine. Normal visualized ribs, clavicles, and shoulders. There are postsurgical changes of the visualized cervical spine. There is no demonstrated abnormality of the visualized soft tissue structures of the upper abdomen. RAD/Chest 1 View IMPRESSION: No acute cardiopulmonary process. Electronically Signed: Robyn Champion MD at 18:03 EST Tel , Service support ,
[2020-07-01] MEDS: DiphenhydrAMINE 50 MG/ML Syringe 25 MG IV (17:44)
[2020-07-01] MEDS: Metoclopramide 10 MG/2 ML Vial 5 MG IV (17:44)
[2020-07-01] MEDS: Ketorolac 30 MG/ML Syringe IV (19:23)
--- NOTE | 2020-07-01 19:37 | ED.RN ---
IV EXTRAVASATION REPORTED TO YOANA RN. BOTH AC IV'S PULLED BEFORE THIS RN TOOK OVER CARE.
--- NOTE | 2020-07-01 20:41 | ED.DEP ---
ED Disposition - Plan for ED Patient: Instructions: ED, Migraine (Classical) Referrals: Audrey Lin MD [Primary Care Provider] -
--- NOTE | 2020-07-01 20:45 | ED.VISSUMM ---
- ER Visit Summary Date of Service: 07/01/20 Chief Complaint: Headache History of Present Illness: The patient is a 45 F presenting with headache. Patient states this started yesterday. She states initially she lost vision in the lateral aspect peripheral field of her right eye. This lasted approximate 45 minutes. She then developed headache and pain behind her right eye. Today she had pain behind her left eye as well. Her vision has returned to normal. She denies fever. She has had nausea with no vomiting. She has had these symptoms since in the past several times. She is not on migraine medication at home. She had Covid in June and has recovered. Physical Examination: Vitals are stable. Patient is afebrile. Alert no acute distress. HEENT exam is unremarkable. PERRL, EOMI Neck is supple. No meningismus Lungs are clear and equal bilaterally. Heart is regular rate and rhythm. Abdomen is soft nontender nondistended. Extremities are unremarkable. Skin is warm and dry. No focal neurologic deficit. NIH 0 Remainder of exam is unremarkable. Emergency Department Course and Treatment: EKG is sinus rhythm rate of 96 with no acute ischemic changes. CBC, chemistries unremarkable. Troponin is negative. Chest x-ray shows no acute process. CTA head and neck show no acute process. Patient was given Reglan, Benadryl IV. She continues to have pain and was given Toradol IV. Intraocular eye pressures 10 OS, 12 OD. Discussed with [facility]y. They evaluated the patient and feel this is likely atypical migraine. She was given Decadron per their recommendation. On reevaluation, she is resting comfortably. She is advised to follow-up with her primary care physician. Advised return to ED for worsening complaints. Disposition: Discharge home Impression: Atypical migraine This note was generated with [employer] dictation software. It may contain incorrect words, spelling, and punctuation that were not noted in review of the chart prior to signing ED Disposition - Plan for ED Patient: Instructions: ED, Migraine (Classical) Referrals: Audrey Lin MD [Primary Care Provider] -
[2020-07-01] MEDS: dexAMETHasone 4 MG Tablet 10 MG PO (21:03)
== END 2020-07-01 21:19 | disposition home or self-care (01) ==
LOC: ED 16:58
PROVIDERS: Emergency Provider Emergency Medicine; PCP Internal Medicine
DX: G43.909 Migraine, unspecified, not intractable, without status migrainosus (principal); Z86.16 Personal history of COVID-19
CPT/HCPCS: 70496; 70498; 71045; 80048; 84484; 85025; 85610; 85730; 93005; 96374; 96375; 99285; Q9967; A4216

== ENCOUNTER → 2021-04-26 | Outpatient (CLI) | payer MEDICAID, SELFPAY | END | disposition home or self-care (01) | LOC: LABSPEC 15:16 | PROVIDERS: PCP Internal Medicine; Referring Provider Otolaryngology; Visit Provider Otolaryngology | DX: U07.1 COVID-19 (principal); Z11.59 Encounter for screening for other viral diseases; Z03.818 Encounter for observation for suspected exposure to other biological agents ruled out | CPT/HCPCS: 87635; U0005; U0003 ==

== ENCOUNTER 2021-06-24 05:57 | Emergency (ER) | payer MEDICAID, SELFPAY ==
[2021-06-24 05:58] VITALS: BP 151/109; PULSE 104; RESP 16; TEMP 36.3; O2SAT 100; BMI 54.3
--- NOTE | 2021-06-24 06:16 | ED.VIS.FEGU ---
HPI HPI - Female History of Present Illness Chief Complaint: Female C/O Informant: patient Pain Pain: Positive for Pelvic Pain Onset: Today Context: Gradual Onset Timing: Continuous Quality: Positive for Sharp Current Severity: Mild Maximum Severity: Mild Bleeding Issue: Negative for Vaginal bleeding, Passing clots and Passing tissue Associated Symptoms Associated Symptoms: Negative for Dysuria, Frequency, Urgency and Hematuria Test: Positive Narrative Narrative: 46-year-old female no seen past medical history currently on no medications. No prior abdominal pelvic surgery. States this morning she developed pelvic pain. Denies vaginal bleeding or discharge. Her last menstrual period was about 2 weeks ago. She denies any dysuria. She denies any fever. She denies any fall injury or trauma. Patient denies having this type of pain before. Prior similar symptoms: No Recent Illness/Hospitalization: No PFSH PFSH Medical History no medical history no medical history Home Medications NK 07/01/20 [History Last Taken Unknown] Allergy/AdvReac Type Severity Reaction Status Date / Time aspirin AdvReac Nausea/Vom/ Verified 06/24/21 06:03 Diarrhea Surgical History History of tonsillectomy Social History Smoking Status: Never smoker ROS ROS ED ROS Narrative Denies recent illness. Review of Systems ROS Unobtainable: Denies due to encephalopathy Constitutional Constitutional ED: Denies fever(s) Eyes Eyes: Denies change in vision ENT ENT ED: Denies ear pain, rhinorrhea or sore throat Cardiovascular Cardiovascular: Denies chest pain Respiratory/Chest Respiratory/Chest: Denies cough or dyspnea Gastrointestinal Gastrointestinal: Denies abdominal pain, constipation, diarrhea, melena, nausea or vomiting Genitourinary Genitourinary ED: Denies dysuria or hematuria Musculoskeletal Musculoskeletal: Denies myalgias Integumentary Denies rash Neurologic Neurologic: Denies headache(s) Psychiatric Psychiatric: Denies depression Endocrine Endocrinology: Denies polyuria Hematologic/Lymphatic Hematologic/Lymphatic: Denies easy bruising Allergic/Immunologic Allergic/Immunologic ED: Denies urticaria EXAM Physical Exam Narrative Exam Narrative: 46-year-old female no acute distress. Vital signs stable afebrile does not look septic or toxic. H EENT exam unremarkable. Moist remembers. Neck nontender. No lymphadenopathy. Lungs clear to auscultation bilaterally. Heart regular rhythm rate about 100 no murmur. Abdomen morbidly obese but soft nontender nondistended normal bowel sounds no peritoneal signs. No suprapubic pain. No hernia or mass. Moving all 4 extremities. Back nontender. Neurologically the patient is awake and alert. Answering questions following commands. Const Vital Signs: 06/24/21 05:58 Temperature 97.4 F L Temperature Source Temporal Pulse Rate 104 H Respiratory Rate 16 Blood Pressure 151/109 H Blood Pressure Mean 123 Pulse Ox 100 Oxygen Delivery Method Room Air Positive well nourished, well developed and obese; Negative for cachectic, contractures or unkempt General Appearance ED: well developed and NAD; Negative for unkempt, cachectic, contractures or pallor Nutritional Appearance: obese; Negative for cachectic HEENT Reports moist mucous membranes Negative for trauma or tenderness Eyes PERRL and EOMs intact bilaterally Neck no lymphadenopathy, supple and no JVD Thyroid: Negative for tender Chest Wall inspection of chest normal and palpation of chest normal Resp normal respiratory effort and clear to auscultation bilaterally Effort and Inspection: Negative for pain with movement Auscultation: Negative for rales, rhonchi or wheezes Cardio regular rate, regular rhythm, S1 normal heart sound, no murmurs and no JVD Rate: Negative for bradycardia or tachycardic Rhythm: Negative for abnormal rhythm GI normal to inspection, nondistended, normoactive bowel sounds, soft to palpation, non-tender, non-distended and no masses Auscultation: normoactive bowel sounds; Negative for hypoactive bowel sounds Palpation: Negative for tender, guarding or rigid no CVA tenderness Narrative: Pelvic exam done female nurse present in the room. External exam unremarkable. Speculum exam there is no bleeding. No discharge. No lesions. On bimanual exam she has midline tenderness. Due to her body habitus I am unable to palpate her ovaries. Back/Spine no CVA tenderness General Back: Negative for CVA tenderness Cervical Spine: Negative for cervical spine tenderness Thoracic Spine / Upper Back: Negative for thoracic spinal tenderness Extremity normal to inspection and full ROM General Extremety ED: Negative for edema or tenderness General Extremity: Negative for edema Neuro oriented x3 Sensorium / Orientation: alert, oriented to person, oriented to place and oriented to time; Negative for confused, lethargic or stuporous Motor Exam: strength 5/5 throughout Psych mental status grossly normal Appearance: Negative for unkempt Attitude: No agitated Mood & Affect: Negative for depressed or tearful Skin no rashes or lesions noted and no wounds General Skin Exam: Negative for jaundice or pallor MDM MDM MDM Narrative Medical decision making narrative: 46-year-old female pelvic pain. Abdominal exam benign. Pelvic exam pending. Labs and urinalysis pending. Repeat exam patient is doing well at 7 AM. She states that she does not have any pain at this time just some pressure. She thinks that the pain improved to the 3 Advil she took prior to arrival. We discussed her lab work which was basically unremarkable. Her urinalysis is contaminated and she has not had any urinary symptoms. Otherwise her labs are unremarkable. She will follow up with her [employer] nurse practitioner. She does not need any further testing at this time. She can get an ultrasound of the pelvis as an outpatient if they felt warranted. Lab Data Attestation: I reviewed the patient's lab results. Lab results narrative: CBC unremarkable. White count of 7.9. H&H of 14 and 39. Chemistries normal. Gap is 6. Normal BUN and creatinine. Glucose 118. Serum test negative. Urinalysis shows 5-10 white cells. 10-25 epithelial cells is a contaminated specimen. 1+ bacteria. No nitrites. Labs: Laboratory Results - last 24 hr 06/24/21 06/24/21 06/24/21 06:20 06:20 06:20 WBC 7.9 RBC 4.42 Hgb 14.0 Hct 39.9 MCV 90.3 MCH 31.7 MCHC 35.1 RDW Std Deviation 45.1 H RDW Coeff of Emmanuel 13.6 Plt Count 254 MPV 9.6 Immature Gran % (Auto) 0.400 Neut % (Auto) 66.1 Lymph % (Auto) 24.1 Cameron % (Auto) 5.8 Eos % (Auto) 3.0 Baso % (Auto) 0.6 Absolute Neuts (auto) 5.3 Absolute Lymphs (auto) 1.91 Nucleated RBC % 0 Sodium 139 Potassium 3.8 Chloride 106 Carbon Dioxide 27.0 Anion Gap 6 BUN 18 Creatinine 0.94 Estim Creat Clear Calc 57.63 Est GFR (MDRD) Af Amer 83 Est GFR (MDRD) Non-Af 69 BUN/Creatinine Ratio 19.2 Glucose 118 H Calcium 9.3 Serum , Qual NEGATIVE Urine Color Urine Clarity Urine pH Ur Specific [place] Urine Protein Urine Glucose (UA) Urine Ketones Urine Occult Blood Urine Nitrite Urine Bilirubin Urine Urobilinogen Ur Leukocyte Esterase Urine RBC Urine WBC Ur Squamous Epith Cells Ur Transition Epith Cell Urine Bacteria Urine Mucus 06/24/21 06:25 WBC RBC Hgb Hct MCV MCH MCHC RDW Std Deviation RDW Coeff of Emmanuel Plt Count MPV Immature Gran % (Auto) Neut % (Auto) Lymph % (Auto) Cameron % (Auto) Eos % (Auto) Baso % (Auto) Absolute Neuts (auto) Absolute Lymphs (auto) Nucleated RBC % Sodium Potassium Chloride Carbon Dioxide Anion Gap BUN Creatinine Estim Creat Clear Calc Est GFR (MDRD) Af Amer Est GFR (MDRD) Non-Af BUN/Creatinine Ratio Glucose Calcium Serum , Qual Urine Color Yellow Urine Clarity Sl. Cloudy Urine pH 5.0 Ur Specific [place] 1.030 Urine Protein 15 H Urine Glucose (UA) Normal Urine Ketones Negative Urine Occult Blood 10 H Urine Nitrite Negative Urine Bilirubin Negative Urine Urobilinogen Normal Ur Leukocyte Esterase 25 H Urine RBC 0-5 SEEN Urine WBC 5-10 SEEN Ur Squamous Epith Cells 10-25 SEEN Ur Transition Epith Cell 0-5 SEEN Urine Bacteria 1+ Urine Mucus 2+ Discharge Plan Triage Chief Complaint: Female C/O ED Provider: Gordon Guzman Dx/Rx/DC Orders Clinical Impression: Pelvic pain Instructions: ED Pain, Acute, Uncertain Cause Prescriptions: No Action NK RF: 0 Primary Care Provider: Audrey Lin Referrals: Audrey Lin MD [Primary Care Provider] - As Needed Activity Restrictions/Additional Instructions: Your lab work today was unremarkable. Follow-up with your primary care physician or your gynecology nurse practitioner for further evaluation. You may need a pelvic ultrasound for additional information if you have continued pain. Motrin and Tylenol for pain. Disposition Disposition: Home, Self Care
[2021-06-24 06:24] LABS: Absolute Lymphocyte Count 1.91 X10^3/uL (0.83-4.51); Absolute Neutrophil Count 5.3 X10^3/uL (2.0-7.7); Basophil# 0.05 X10^3/uL; Basophil% 0.6 % (0-1); Eosinophil# 0.24 X10^3/uL; Hematocrit 39.9 % (37-47); Lymphocyte # 1.91 X10^3/ul (0.83-4.51); Lymphocyte % 24.1 % (19-41); Mean Corp Hgb Conc 35.1 g/dL (32-36); Mean Corpuscular Hgb 31.7 pg (27.0-32.0); Mean Corpuscular Volume 90.3 fL (81-99); Mean Platelet Vol. 9.6 fl (6.2-12.0); Monocyte# 0.46 X10^3/uL; Monocyte% 5.8 % (0-10); NRBC Flagged by Analyzer 0 % (0-5); Neutrophil # 5.25 X10^3/uL (2.7-7.7); Neutrophil % 66.1 % (47-70); Platelet Count 254 K/mm3 (150-450); RBC Distribution Width CV 13.6 % (11.6-14.6); RBC Distribution Width SD 45.1 fl (35.1-43.9); Red Blood Count 4.42 M/mm3 (4.2-5.4); White Blood Count 7.9 K/mm3 (4.4-11.0)
[2021-06-24 06:32] LABS: Color, Urine Yellow (Yellow); Glucose, Dipstick Normal (Normal); Ketone-Dipstick Negative (Negative); Leukocyte Esterase-Dipstick 25 /ul (Negative); Nitrite-Dipstick Negative (Negative); Occult Blood-Urine 10 /ul (Negative); Protein-Dipstick 15 mg/dl (Negative); Urine Bilirubin Dipstick Negative (Negative); Urine Clarity Sl. Cloudy (Clear); Urine Urobilinogen Normal (Normal)
[2021-06-24 06:36] LABS: Anion Gap 6 (5-15); BUN 18 mg/dL (7-18); BUN/Creat Ratio 19.2 RATIO (10-20); Calcium,Total 9.3 mg/dL (8.5-10.1); Chloride 106 mmol/L (98-107); Creatinine, Serum 0.94 mg/dL (0.55-1.02); EST Glomerular Filtration Rate 69 mL/min (>60); Est Glom Filt Rate - Afr Amer 83 mL/min (>60); Estimated Creatinine Clearance 57.63 ml/min; Glucose 118 mg/dL (74-106); Potassium 3.8 mmol/L (3.5-5.1); Sodium Level 139 mmol/L (136-145)
[2021-06-24 06:42] LABS: Squamous Epithelial Cells - UA 10-25 SEEN /hpf (5-10); Transitional Epithelial - Ur 0-5 SEEN /hpf (0-5)
[2021-06-24 06:43] LABS: Bacteria 1+ /hpf (None Seen); Mucous, Urine 2+ /hpf (<or=2+); Red Blood Cells-Urine 0-5 SEEN /hpf (0-5); White Blood Cells 5-10 SEEN /hpf (0-5)
[2021-06-24 06:51] LABS: Internal QC Validated? YES +Cl - CLEAR BKGD; Pregnancy, Serum, hCG Quali. NEGATIVE Negative
[2021-06-24 07:11] VITALS: BP 139/84; PULSE 76; RESP 15; O2SAT 98
== END 2021-06-24 07:12 | disposition home or self-care (01) ==
PROVIDERS: Emergency Provider Emergency Medicine; PCP Internal Medicine; Visit Provider Emergency Medicine
DX: R10.2 Pelvic and perineal pain (principal); Z68.43 Body mass index [BMI] 50.0-59.9, adult; E66.9 Obesity, unspecified
CPT/HCPCS: 80048; 81001; 84703; 85025; 99283

== ENCOUNTER 2022-07-19 20:05 | Emergency (ER) | payer MEDICAID, SELFPAY ==
[2022-07-19 20:06] VITALS: BP 130/80; PULSE 86; RESP 15; TEMP 36; O2SAT 98; BMI 54.0
[2022-07-19 20:33] VITALS: BP 130/80; PULSE 86; RESP 15; O2SAT 98
--- NOTE | 2022-07-19 20:33 | EX.ED.DYSGE1 ---
HPI History of Present Illness Chief Complaint: General Illness Detail of Chief Complaint: Nausea and diarrhea Informant: patient Narrative Narrative: Patient presents with nausea and diarrhea that started this morning. She had 3 episodes of watery stool. She denies vomiting. She denies abdominal pain. She denies urinary symptoms. She denies sick contacts. She has had no fever. Patient missed school today so she was told she would need a doctor's note to come back. Patient states she was able to eat lunch and she has had no vomiting throughout the day. She went to urgent care and was referred to the emergency department. PFSH PFSH Home Medications ondansetron 4 mg disintegrating tablet 4 mg PO Q8H PRN PRN Nausea #10 tabs 07/19/22 [Rx Last Taken Unknown] Allergy/AdvReac Type Severity Reaction Status Date / Time aspirin AdvReac Nausea/Vom/ Verified 06/24/21 06:03 Diarrhea Surgical History History of tonsillectomy Social History Smoking Status: Never smoker ROS ROS ED Review of Systems ROS Unobtainable: other Constitutional Constitutional ED: Reports lethargy; Denies chills, fever(s), sweats or weight loss Eyes Eyes: Denies blurry vision, change in vision or diplopia ENT ENT ED: Denies rhinorrhea or sore throat Cardiovascular Cardiovascular: Denies chest pain, orthopnea or racing heartbeat Respiratory/Chest Respiratory/Chest: Denies cough, dyspnea, dyspnea on exertion, orthopnea or sputum Gastrointestinal Gastrointestinal: Reports diarrhea and nausea; Denies abdominal pain or vomiting Genitourinary Genitourinary ED: Denies dysuria, hematuria or urinary frequency Musculoskeletal Musculoskeletal: Denies arthralgias, back pain, myalgias or neck pain Integumentary Denies abscess, Abrasions or rash Neurologic Neurologic: Denies headache(s) or weakness Psychiatric Psychiatric: Denies anxiety, depression or suicidal thoughts Endocrine Endocrinology: Denies polydipsia, polyphagia or polyuria Hematologic/Lymphatic Hematologic/Lymphatic: Denies easy bleeding, easy bruising or lymphadenopathy Allergic/Immunologic Allergic/Immunologic ED: Denies mouth swelling, tongue swelling or urticaria EXAM Physical Exam Const Vital Signs: 07/19/22 20:06 07/19/22 20:33 Temperature 96.8 F L Temperature Source Oral Pulse Rate 86 86 Respiratory Rate 15 15 Blood Pressure 130/80 H 130/80 H Blood Pressure Mean 96 Pulse Ox 98 98 Oxygen Delivery Method Room Air Positive well nourished and well developed General Appearance ED: well developed and NAD HEENT Reports TM's clear and moist mucous membranes normocephalic and atraumatic; Negative for trauma or tenderness Tympanic Membrane ED: Yes TM's clear Eyes PERRL and EOMs intact bilaterally General Eye ED: Negative for pale conjunctiva or scleral icterus Neck no lymphadenopathy, supple and no JVD General: Negative for tenderness Chest Wall inspection of chest normal and palpation of chest normal Chest: Negative for tenderness Resp normal respiratory effort and clear to auscultation bilaterally Effort and Inspection: Negative for respiratory distress or pain with movement Auscultation: Negative for rhonchi, wheezes or diminished lung sounds Cardio regular rate, regular rhythm, S1 normal heart sound, S2 normal heart sound and no murmurs Peripheral Pulses: pulses 2+ throughout GI normal to inspection, nondistended, normoactive bowel sounds, soft to palpation, non-tender, non-distended and no masses Back/Spine no CVA tenderness and no thoracic nor lumbar tenderness Extremity normal to inspection General Extremety ED: Negative for edema General Extremity: Negative for edema Neuro oriented x3, CN's II-XII intact bilaterally, no sensory deficits noted and gait normal Sensorium / Orientation: awake, alert, oriented to person, oriented to place and oriented to time Motor Exam: strength 5/5 throughout and strength abnormal Psych mental status grossly normal Skin no rashes or lesions noted and no wounds MDM MDM MDM Narrative Medical decision making narrative: Patient presents with nausea and diarrhea. Symptoms have mostly resolved. I suspect likely viral gastroenteritis as it is in the community. Her exam is benign and vital signs are unremarkable. I do not feel she needs any emergent treatment. She will be given a prescription for Zofran and she is to use Imodium as needed if the diarrhea persist. Advised to push fluids. Discharge Plan Triage Chief Complaint: General Illness ED Provider: Dionne Amos Dx/Rx/DC Orders Clinical Impression: Viral gastroenteritis Instructions: ED Gastroenteritis, Viral (Adult) Prescriptions: New ondansetron [ondansetron] 4 mg tablet,disintegrating 4 mg PO Q8H PRN PRN (Reason: Nausea) Qty: 10 0RF Primary Care Provider: Audrey Lin Referrals: Audrey Lin MD [Primary Care Provider] - 3-5 Days Disposition Disposition: Home, Self Care
== END 2022-07-19 20:45 | disposition home or self-care (01) ==
PROVIDERS: Emergency Provider Emergency Medicine; PCP Internal Medicine; Visit Provider Emergency Medicine
DX: A08.4 Viral intestinal infection, unspecified (principal)
CPT/HCPCS: 99282

== ENCOUNTER 2023-03-20 05:58 | Emergency (ER) | payer SELFPAY ==
[2023-03-20 05:59] VITALS: BP 132/63; PULSE 81; RESP 16; TEMP 37; O2SAT 98; BMI 57.9
--- NOTE | 2023-03-20 06:23 | EKG12_ITS ---
Test Reason : Blood Pressure : / mmHG Vent. Rate : 097 BPM Atrial Rate : 097 BPM P-R Int : 152 ms QRS Dur : 068 ms QT Int : 332 ms P-R-T Axes : 044 017 018 degrees QTc Int : 421 ms Normal sinus rhythm Normal ECG Confirmed by FELISHA CORREIA, REINA ([id number]), writer editor YARA HU ([id number]) on 03/22/2023 12:43:09 PM Referred By: Confirmed By:REINA BAEZA MD
--- NOTE | 2023-03-20 06:24 | ED.VIS.GI ---
HPI HPI - GI History of Present Illness Chief Complaint: Abd Pain Detail of Chief Complaint: Abdominal pain Informant: patient Narrative Narrative: Present to the emergency department complaint of abdominal pain that woke her up from sleep this morning. She describes upper abdomen pain that she rates a 6 or 7 out of 10. She had some nausea with it but no vomiting. She has had 2 other episodes like this in the last 2 to 3 weeks that usually last less than an hour and then the pain resolves. She has not noted an association with food. Patient denies chest pain or shortness of breath otherwise. She had no prior abdominal surgeries. She denies dysuria or urgency or frequency. At times the pain will radiate to the back. [facility] Medical History (Updated 03/20/23 @ 07:[address] Dionne Amos DO) Deviated septum Home Medications lansoprazole 30 mg capsule,delayed release (Prevacid) 30 mg PO DAILY #14 caps 03/20/23 [Rx Last Taken Unknown] Allergy/AdvReac Type Severity Reaction Status Date / Time aspirin AdvReac Nausea/Vom/ Verified 03/20/23 05:59 Diarrhea Surgical History (Updated 03/20/23 @ 06:04 by Margie Molina) H/O neck surgery History of tonsillectomy Social History Smoking Status: Never smoker ROS ROS ED Review of Systems ROS Unobtainable: other Constitutional Constitutional ED: Reports lethargy; Denies chills, fever(s), sweats or weight loss Eyes Eyes: Denies blurry vision, change in vision or diplopia ENT ENT ED: Denies rhinorrhea or sore throat Cardiovascular Cardiovascular: Denies chest pain, orthopnea or racing heartbeat Respiratory/Chest Respiratory/Chest: Denies cough, dyspnea, dyspnea on exertion, orthopnea or sputum Gastrointestinal Gastrointestinal: Reports abdominal pain and nausea; Denies diarrhea or vomiting Genitourinary Genitourinary ED: Denies dysuria, hematuria or urinary frequency Musculoskeletal Musculoskeletal: Denies arthralgias, back pain, myalgias or neck pain Integumentary Denies abscess, Abrasions or rash Neurologic Neurologic: Denies headache(s) or weakness Psychiatric Psychiatric: Denies anxiety, depression or suicidal thoughts Endocrine Endocrinology: Denies polydipsia, polyphagia or polyuria Hematologic/Lymphatic Hematologic/Lymphatic: Denies easy bleeding, easy bruising or lymphadenopathy Allergic/Immunologic Allergic/Immunologic ED: Denies mouth swelling, tongue swelling or urticaria EXAM Physical Exam Const Vital Signs: 03/20/23 05:59 Temperature 98.6 F Temperature Source Oral Pulse Rate 81 Respiratory Rate 16 Blood Pressure 132/63 H Blood Pressure Mean 86 Pulse Ox 98 Positive well nourished and well developed General Appearance ED: well developed and NAD HEENT Reports TM's clear and moist mucous membranes normocephalic and atraumatic; Negative for trauma or tenderness Tympanic Membrane ED: Yes TM's clear Eyes PERRL and EOMs intact bilaterally General Eye ED: Negative for pale conjunctiva or scleral icterus Neck no lymphadenopathy, supple and no JVD General: Negative for tenderness Chest Wall inspection of chest normal and palpation of chest normal Chest: Negative for tenderness Resp normal respiratory effort and clear to auscultation bilaterally Effort and Inspection: Negative for respiratory distress or pain with movement Auscultation: Negative for rhonchi, wheezes or diminished lung sounds Cardio regular rate, regular rhythm, S1 normal heart sound, S2 normal heart sound and no murmurs Peripheral Pulses: pulses 2+ throughout GI normal to inspection, nondistended, normoactive bowel sounds, soft to palpation, non-distended and no masses GI Narrative: Tenderness palpation the epigastric region with some mild guarding. There is no rebound, rigidity, or pineal signs. No mass palpated Back/Spine no CVA tenderness and no thoracic nor lumbar tenderness Extremity normal to inspection General Extremety ED: Negative for edema General Extremity: Negative for edema Neuro oriented x3, CN's II-XII intact bilaterally, no sensory deficits noted and gait normal Sensorium / Orientation: awake, alert, oriented to person, oriented to place and oriented to time Motor Exam: strength 5/5 throughout and strength abnormal Psych mental status grossly normal Skin no rashes or lesions noted and no wounds MDM MDM MDM Narrative Medical decision making narrative: Patient presents to the emergency department with upper abdomen pain that has been recurrent over the last 2 to 3 weeks. Upper abdomen pain. Not necessarily associated with food. In the differential would be gastritis versus gallbladder disease versus pancreatitis versus kidney stone or UTI. IV line established. CBC with differential obtained showed a normal white count of 8.2 with hemoglobin 13.8 platelet count 251. Chemistries unremarkable. LFTs unremarkable. EKG obtained on arrival showed sinus rhythm with ventricular rate of 97 bpm with no acute ST segment changes. Troponin normal at 4 and lipase was normal at 31. CT scan of the abdomen pelvis with IV contrast essentially unremarkable. Patient was given morphine initially for pain and then was given a GI cocktail. Urinalysis is pending. As long as urinalysis unremarkable feel she can be discharged home to follow-up with referral to general surgery. We will treat with prescription for Prevacid. Lab Data Attestation: I reviewed the patient's lab results. Labs: Laboratory Results - last 24 hr 03/20/23 06:35 WBC 8.2 RBC 4.57 Hgb 13.8 Hct 41.1 MCV 89.9 MCH 30.2 MCHC 33.6 RDW Std Deviation 45.7 H RDW Coeff of Emmanuel 14.0 Plt Count 251 MPV 9.7 Immature Gran % (Auto) 0.400 Neut % (Auto) 66.4 Lymph % (Auto) 21.3 Bee % (Auto) 6.1 Eos % (Auto) 5.1 H Baso % (Auto) 0.7 Absolute Neuts (auto) 5.4 Absolute Lymphs (auto) 1.74 Nucleated RBC % 0 Sodium 139 Potassium 4.0 Chloride 108 H Carbon Dioxide 25.0 Anion Gap 6 BUN 16 Creatinine 1.07 H Estim Creat Clear Calc 49.57 Est GFR (MDRD) Af Amer 71 Est GFR (MDRD) Non-Af 59 L BUN/Creatinine Ratio 15.0 Glucose 114 H Calcium 9.0 Total Bilirubin 0.40 AST 13 L ALT 23 Alkaline Phosphatase 66 Troponin I High Sens 4 Total Protein 6.9 Albumin 3.4 Globulin 3.5 Albumin/Globulin Ratio 1.0 Lipase 31 Radiography Diagnostic Testing: Clinical Impression(s) from Imaging Studies Abdomen/Pelvis CT 03/20/23 06:50 IMPRESSION: 1. Mild splenomegaly. 2. Large uterus, possibly leiomyomatous or adenomyomatosis. 3. No evidence for acute pathology. Electronically Signed: Gopal Cope MD at 7:41 EST , EKG Initial EKG: Attestation: I personally reviewed and interpreted this EKG as follows: Comments: Sinus rhythm with a rate of 97 bpm with no acute ST segment change Discharge Plan Triage Chief Complaint: Abd Pain ED Provider: Dionne Amos Dx/Rx/DC Orders Clinical Impression: Abdominal pain Instructions: ED Abdominal Pain Unkn Cause Fem Prescriptions: New lansoprazole [Prevacid] 30 mg capsule,delayed release(DR/EC) 30 mg PO DAILY Qty: 14 0RF Primary Care Provider: Audrey Lin Referrals: Nate Castillo MD [Med Staff - Active Staff] - 3-5 Days Audrey Lin MD [Primary Care Provider] - Disposition Disposition: Home, Self Care
[2023-03-20 06:44] LABS: Absolute Lymphocyte Count 1.74 X10^3/uL (0.83-4.51); Absolute Neutrophil Count 5.4 X10^3/uL (2.0-7.7); Basophil# 0.06 X10^3/uL; Basophil% 0.7 % (0-1); Eosinophil# 0.42 X10^3/uL; Eosinophils% 5.1 % (0-5); Hematocrit 41.1 % (37-47); Hemoglobin 13.8 g/dL (12.0-15.0); Lymphocyte # 1.74 X10^3/ul (0.83-4.51); Lymphocyte % 21.3 % (19-41); Mean Corp Hgb Conc 33.6 g/dL (32-36); Mean Corpuscular Hgb 30.2 pg (27.0-32.0); Mean Corpuscular Volume 89.9 fL (81-99); Mean Platelet Vol. 9.7 fl (6.2-12.0); Monocyte% 6.1 % (0-10); NRBC Flagged by Analyzer 0 % (0-5); Neutrophil # 5.43 X10^3/uL (2.7-7.7); Neutrophil % 66.4 % (47-70); Platelet Count 251 K/mm3 (150-450); RBC Distribution Width SD 45.7 fl (35.1-43.9); Red Blood Count 4.57 M/mm3 (4.2-5.4); White Blood Count 8.2 K/mm3 (4.4-11.0)
[2023-03-20] MEDS: Ondansetron 4 MG/2 ML Vial IV (06:45)
[2023-03-20] MEDS: 0.9% Normal Saline (1000mL) 1,000 ML 125 ML IV (06:45)
[2023-03-20] MEDS: Morphine 4 MG/ML Syringe IV (06:45)
--- NOTE | 2023-03-20 06:50 | CT_ITS ---
EXAM: CT ABDOMEN AND PELVIS WITH INTRAVENOUS CONTRAST CLINICAL INDICATION: abdominal pain abdominal pain TECHNIQUE: Helically acquired images were obtained of the abdomen and pelvis with intravenous contrast. This CT exam was performed using one or more of the following dose reduction techniques: automated exposure control, adjustment of the mA and/or kV according to patient size, and/or use of iterative reconstruction technique. CONTRAST: IV 100mL Isovue-370 RADIATION DOSE: CTDIvol = 17.07 mGy, DLP = 1297.68 mGy-cm COMPARISON: No relevant prior studies available. FINDINGS: LOWER THORAX: Unremarkable. Lung bases are clear. No cardiomegaly. No significant pericardial effusion. ABDOMEN: LIVER: Unremarkable. Homogeneous. No focal mass. GALLBLADDER AND BILE DUCTS: Unremarkable. No calcified gallstones. No gallbladder distention or wall edema. No intra- or extrahepatic biliary ductal dilation. PANCREAS: Unremarkable. No focal cystic or solid mass. SPLEEN: The spleen is mildly enlarged. ADRENALS: Unremarkable. No nodules. KIDNEYS AND URETERS: Unremarkable. Normal renal size and position. No hydronephrosis. STOMACH AND BOWEL: Unremarkable. No stomach or bowel distention. No focal inflammatory change. PELVIS: APPENDIX: A normal appendix is seen on axial images 81-83. BLADDER: Unremarkable. REPRODUCTIVE: The uterus is large and mildly heterogeneous. No discrete masses are identified. This might present a leiomyomatous or adenomyomatous uterus. ABDOMEN and PELVIS: INTRAPERITONEAL SPACE: Unremarkable. No ascites or other fluid collection. No free air. BONES/JOINTS: There are multilevel degenerative changes in the visualized spine. No suspicious lytic or blastic abnormality. SOFT TISSUES: Unremarkable. No discrete abdominal or pelvic wall hernia. VASCULATURE: Unremarkable. Abdominal aorta is non-dilated. LYMPH NODES: Unremarkable. No enlarged lymph nodes. CT/Abdomen/Pelvis W IV Cont ONLY IMPRESSION: 1. Mild splenomegaly. 2. Large uterus, possibly leiomyomatous or adenomyomatosis. 3. No evidence for acute pathology. Electronically Signed: Gopal Cope MD at 7:41 EST Reading Location ID and State: [facility] / [place] , Service support ,
[2023-03-20 07:08] LABS: AST(SGOT) 13 U/L (15-37); Alanine Aminotransfer ALT/SGPT 23 U/L (13-56); Albumin, Serum 3.4 g/dL (3.2-5.0); Alkaline Phosphatase 66 U/L (45-117); Anion Gap 6 (5-15); BUN 16 mg/dL (7-18); Chloride 108 mmol/L (98-107); Creatinine, Serum 1.07 mg/dL (0.55-1.02); EST Glomerular Filtration Rate 59 mL/min (>60); Est Glom Filt Rate - Afr Amer 71 mL/min (>60); Estimated Creatinine Clearance 49.57 ml/min; Globulin 3.5 g/dL (2.2-4.2); Glucose 114 mg/dL (74-106); Lipase 31 U/L (13-75); Protein, Total 6.9 g/dL (6.4-8.2); Sodium Level 139 mmol/L (136-145); Troponin-I HS 4 pg/mL (3.0-54.0)
[2023-03-20] MEDS: Mag Hydrox/Al Hydrox/Simeth 30 ML UDC PO (07:45)
[2023-03-20 07:46] LABS: Mucous, Urine 0 SEEN /hpf (<or=2+); Red Blood Cells-Urine 0 SEEN /hpf (0-5)
[2023-03-20 08:08] LABS: Color, Urine Yellow (Yellow); Glucose, Dipstick Normal (Normal); Ketone-Dipstick Negative (Negative); Leukocyte Esterase-Dipstick 25 /ul (Negative); Nitrite-Dipstick Negative (Negative); Occult Blood-Urine 10 /ul (Negative); Protein-Dipstick 15 mg/dl (Negative); Specific Gravity, Urine 1.015 (1.002-1.030); Urine Bilirubin Dipstick Negative (Negative); Urine Clarity Clear (Clear); Urine Urobilinogen Normal (Normal)
[2023-03-20 08:16] LABS: Bacteria RARE /hpf (None Seen); Squamous Epithelial Cells - UA 0-5 SEEN /hpf (5-10); White Blood Cells 0-5 SEEN /hpf (0-5)
[2023-03-20 09:22] VITALS: BP 124/68; PULSE 78; RESP 18; O2SAT 100
[2023-03-20 09:23] VITALS: BP 124/68; PULSE 78; RESP 18; O2SAT 100
== END 2023-03-20 09:34 | disposition home or self-care (01) ==
PROVIDERS: Emergency Provider Emergency Medicine; PCP Internal Medicine; Visit Provider Emergency Medicine
DX: R10.9 Unspecified abdominal pain (principal)
CPT/HCPCS: 74177; 80053; 81001; 83690; 84484; 85025; 93005; 96361; 96374; 96375; 99284; J7030; Q9967; A4216; J2405